=== PATIENT | male | born 1990 | race African-American/Black ===

== ENCOUNTER 2017-12-12 20:29 | Emergency (ER) | payer SELFPAY ==
--- NOTE | 2017-12-12 20:34 | ER Document Report ---
HPI - HPI Patient complains to provider of: right side sore throat Onset: Other - Onset/Duration: Gradual, Persistent Quality of pain: Throbbing Pain Level: 5 Context: 27 yo male with right sided sore throat since wednesday, radiates into right ear. No cough. NO fever. Hurts to swallow. Works at [employer]. Associated Symptoms: Other - see above Exacerbated by: Other - swallowing Relieved by: Denies - ROS ROS below otherwise negative: Yes Systems Reviewed and Negative: Yes All other systems reviewed and negative Past Medical History - General Information source: Patient - Social History Smoking Status: Never Smoker Frequency of alcohol use: None Drug Abuse: None Lives with: Spouse/Significant other Family History: Reviewed & Not Pertinent - Medical History Medical History: Negative Surgical Hx: Negative Vertical Provider Document - CONSTITUTIONAL Agree With Documented VS: Yes Exam Limitations: No Limitations General Appearance: No Apparent Distress - INFECTION CONTROL TRAVEL OUTSIDE OF THE [place] IN LAST 30 DAYS: No - HEENT HEENT: Pharyngeal Erythema. negative: Conjuctival Injection, Tympanic Membrane Red Notes: exudate right tonsil, no abscess - NECK Neck: Supple, Lymphadenopathy-Left - ant, Lymphadenopathy-Right - ant - RESPIRATORY Respiratory: Breath Sounds Normal, No Respiratory Distress - CARDIOVASCULAR Cardiovascular: Regular Rate, Regular Rhythm - GI/ABDOMEN Gastrointestinal: Abdomen Soft, Abdomen Non-Tender, No Organomegaly - MUSCULOSKELETAL/EXTREMETIES Musculoskeletal/Extremeties: MAEW - NEURO Level of Consciousness: Awake, Alert - DERM Integumentary: No Rash Discharge - Discharge Clinical Impression: Tonsillitis Condition: Good Disposition: HOME, SELF-CARE Instructions: Azithromycin ([facility]), Corticosteroid Medication ([facility]), Family Physicians / Practices, Sore Throat ([facility]), Tonsillitis ([facility]) Additional Instructions: plenty of fluids rest azithromycin for antibiotic motrin for pain tylenol prednisone for 3 days to ER if worse if not well in 1 week, get tested for mononucleosis Prescriptions: Ibuprofen [Motrin 600 mg Tablet] 600 mg PO Q8HP PRN #30 tablet PRN Reason: Azithromycin [Zithromax] 250 mg PO DAILY #6 tablet Prednisone [Deltasone 10 mg Tablet] 10 mg PO ASDIR PRN #14 tablet PRN Reason: Forms: Return to Work
[2017-12-12 20:35] VITALS: BP 150/95
== END 2017-12-12 20:46 | disposition home or self-care (01) ==
LOC: ER 20:29
DX: J03.90 Acute tonsillitis, unspecified (principal)
CPT/HCPCS: 99282

== ENCOUNTER 2017-12-14 04:57 | Inpatient (IN) | payer SELFPAY ==
[2017-12-14] MEDS ORDERED: ONDANSETRON HCL INJ/PF 4 MG/2 ML SDV IV ONE (05:48)
[2017-12-14] MEDS ORDERED: NORMAL SALINE 1000 ML 1,000 ML IV ONE ×3 (05:48→10:11)
[2017-12-14] MEDS ORDERED: ONDANSETRON HCL INJ/PF 4 MG/2 ML SDV ONE ×2 (05:52→19:36)
[2017-12-14 06:09] LABS: HEMATOCRIT 36.4 % (37.9-51.0); HEMOGLOBIN 12.3 g/dL (13.5-17.0); MEAN CORPUSCULAR HEMOGLOBIN 29.4 pg (27.0-33.4); MEAN CORPUSCULAR HGB CONC 33.7 g/dL (32.0-36.0); MEAN CORPUSCULAR VOLUME 87 fl (80-97); PLATELET COUNT 249 10^3/uL (150-450); RED BLOOD COUNT 4.17 10^6/uL (4.35-5.55); RED CELL DISTRIBUTION WIDTH 13.7 % (11.5-14.0); WHITE BLOOD COUNT 11.5 10^3/uL (4.0-10.5)
[2017-12-14 06:18] LABS: ALANINE AMINOTRANSFERASE 28 U/L (21-72); ALBUMIN 3.8 g/dL (3.5-5.0); ALKALINE PHOSPHATASE 107 U/L (38-126); ANION GAP 18 (5-19); ASPARTATE AMINO TRANSFERASE 18 U/L (17-59); BILIRUBIN,DIRECT 0.4 mg/dL (0.0-0.4); BILIRUBIN,TOTAL 0.6 mg/dL (0.2-1.3); BLOOD UREA NITROGEN 34 mg/dL (7-20); CALCIUM 9.7 mg/dL (8.4-10.2); CARBON DIOXIDE 21 mmol/L (22-30); CHLORIDE 107 mmol/L (98-107); GLUCOSE 242 mg/dL (75-110); LIPASE 20.1 U/L (23-300); POTASSIUM 4.1 mmol/L (3.6-5.0); SODIUM 146.2 mmol/L (137-145); TOTAL PROTEIN 7.6 g/dL (6.3-8.2)
[2017-12-14 06:30] LABS: ABSOLUTE LYMPHOCYTES# (MANUAL) 0.5 10^3/uL (0.5-4.7); ABSOLUTE MONOCYTES # (MANUAL) 1.8 10^3/uL (0.1-1.4); ABSOLUTE NEUTROPHILS# (MANUAL) 9.2 10^3/uL (1.7-8.2); BAND NEUTROPHILS % (MANUAL) 5 % (3-5); BASOPHILS % (MANUAL) 0 % (0-2); EOSINOPHILS % (MANUAL) 0 % (0-6); LYMPHOCYTES % (MANUAL) 4 % (13-45); METAMYELOCYTES % (MANUAL) 2 % (0); MONOCYTES % (MANUAL) 16 % (3-13); SEGMENTED NEUTROPHILS % (MAN) 73 % (42-78); TOTAL CELLS COUNTED 100
[2017-12-14 06:31] LABS: PLATELET COMMENT ADEQUATE; RBC MORPHOLOGY COMMENT NORMO-CYTIC/CHROMIC
[2017-12-14] MEDS ORDERED: KETOROLAC TROMETHAMINE INJ/PF 30 MG/1 ML SDV IV ONE (07:05)
[2017-12-14] MEDS ORDERED: KETOROLAC TROMETHAMINE INJ/PF 30 MG/1 ML SDV ONE (07:08)
--- NOTE | 2017-12-14 07:09 | ER Document Report ---
ED General - General Chief Complaint: Sore Throat Stated Complaint: VOMITING Time Seen by Provider: 12/14/17 06:29 TRAVEL OUTSIDE OF THE [place] IN LAST 30 DAYS: No - HPI Notes: 27-year-old male who presents with throat pain. Patient was seen several days ago treated for presumptive strep throat, states he has had increasingly severe pain, now has marked increase in difficulty swallowing and states it hurts to move his neck. Describes pain deep in the back of his throat. Burning, aching sharp at times. Subjective fever. Nonradiating except as described. No other modifying factors, no other associated symptoms, no other provocative or palliative factors. - Related Data Allergies/Adverse Reactions: Penicillins Allergy (Verified 12/12/17 20:32) Past Medical History - Social History Smoking Status: Unknown if Ever Smoked Chew tobacco use (# tins/day): No Frequency of alcohol use: None Drug Abuse: None Family History: Reviewed & Not Pertinent Patient has suicidal ideation: No Patient has homicidal ideation: No - Medical History Medical History: Other - Recent strep Endocrine Medical History: Reports: Hx Diabetes Mellitus Type 1 Renal/ Medical History: Denies: Hx Peritoneal Dialysis Review of Systems - Review of Systems Notes: Review of systems as in the history of present illness, otherwise negative. Physical Exam - Vital signs Vitals: Temp Pulse Resp BP Pulse Ox 98.4 F 105 H 20 118/82 98 12/14/17 05:08 12/14/17 05:08 12/14/17 05:08 12/14/17 05:08 12/14/17 05:08 - Notes Notes: General: Well developed . HEENT: Normocephalic, atraumatic. Pupils equal round reactive to light. No JVD. Moderate pharyngeal injection, no purulence. No uvular edema. Chest: No trauma. Respiratory: Good air exchange, normal excursion. Cardiac: Regular rhythm. No murmurs or gallops. Abdomen: Soft, benign. Nondistended. Nontender. Back: No asymmetry or gross abnormality. Motor: Grossly normal power and tone. Neurologic: Alert, nonfocal. Cranial nerves II-12 are intact. Sensation intact. Vascular: Well perfused. Normal peripheral pulses. Skin: No petechiae or purpura. Course - Re-evaluation Re-evalutation: 12/14/17 07:08 27-year-old male with persistent pharyngitis. May be viral pharyngitis, persistent strep symptoms, however, is concerned with potential retropharyngeal abscess or deep space abscess. Plan to proceed with laboratory evaluation, CT, treat pain, reassess. Labs reviewed, no significant leukocytosis, normal lactate. Chemistries show mild hyperglycemia. Patient did undergo CT imaging, this shows what appears to be a retropharyngeal phlegmon versus early abscess. Case is discussed with the on-call ENT doctor who is requested hospitalist admission and will evaluate him in the ED. Patient received volume hydration/resuscitation, is kept n.p.o., I have given him IV clindamycin and IV Decadron. Blood cultures were obtained and pending. Patient has had serial airway evaluations. He is maintaining his airway, not drooling, has no significant increased work of breathing. He will be admitted to the ICU under the care of the hospitalist service. - Vital Signs Vital signs: Temp Pulse Resp BP Pulse Ox 98.6 F 105 H 19 128/93 H 96 12/14/17 09:50 12/14/17 09:50 12/14/17 11:30 12/14/17 11:30 12/14/17 11:30 - Laboratory Result Diagrams: 12/14/17 05:40 12/14/17 05:40 Laboratory results interpreted by me: 12/14/17 12/14/17 12/14/17 05:40 05:40 08:40 WBC 11.5 H RBC 4.17 L Hgb 12.3 L Hct 36.4 L Lymphocytes % (Manual) 4 L Monocytes % (Manual) 16 H Metamyelocytes % 2 H Abs Neuts (Manual) 9.2 H Abs Monocytes (Manual) 1.8 H Sodium 146.2 H Carbon Dioxide 21 L BUN 34 H Creatinine 1.51 H Est GFR (Non-Af Amer) 55 L Glucose 242 H Lipase 20.1 L Urine Protein 100 H Urine Glucose (UA) >=500 H Urine Ketones TRACE H Urine Blood MODERATE H Critical Care Note - Critical Care Note Total time excluding time spent on procedures (mins): 35 Comments: Includes serial airway evaluations, discussion case with consultants and admitting physicians. This does not include time spent on procedures Discharge - Discharge Clinical Impression: Retropharyngeal abscess Condition: Critical Disposition: ADMITTED INPATIENT Admitting Provider: Hospitalist Unit Admitted: ICU
[2017-12-14] MEDS ORDERED: QUETIAPINE FUMARATE 25 MG TABLET PO ONE (07:17)
[2017-12-14] MEDS ORDERED: HYDROMORPHONE HCL INJ/PF 2 MG/ML AMPULE IV ONE (08:30)
[2017-12-14 08:55] LABS: APPEARANCE,URINE CLEAR; BILIRUBIN,URINE NEGATIVE (NEGATIVE); COLOR,URINE YELLOW; GLUCOSE, URINE >=500 mg/dL (NEGATIVE); KETONES,URINE TRACE mg/dL (NEGATIVE); LEUKOCYTE ESTERASE,URINE NEGATIVE (NEGATIVE); NITRITE,URINE NEGATIVE (NEGATIVE); PROTEIN,URINE 100 mg/dL (NEGATIVE); URINE SPECIFIC GRAVITY 1.022; UROBILINOGEN,URINE NEGATIVE mg/dL (<2.0)
--- NOTE | 2017-12-14 08:57 | RADIOLOGY REPORT (SQ) ---
EXAM DESCRIPTION: CT SOFT TISSUE NECK WITH COMPLETED DATE/TIME: 12/14/2017 8:26 am REASON FOR STUDY: Sore throat, tonsilitis; Eval for retropharyngeal abscess COMPARISON: None. TECHNIQUE: Post IV contrasted scanning from skull base through lung apices with review of bone, soft tissue and lung windows. Reconstructed coronal and sagittal MPR images reviewed. All images stored on PACS. All CT scanners at this facility use dose modulation, iterative reconstruction, and/or weight based d osing when appropriate to reduce radiation dose to as low as reasonably achievable (ALARA). [facility]: Dose Right [facility]: CareDose [facility]: Dose Right [facility]: Teradose 4D [facility]: AXON [employer] CONTRAST TYPE AND DOSE: contrast/concentration: Isovue 300.00 mg/ml; Total Contrast Delivered: 75.0 ml; Total Saline Delivered: 46.7 ml RENAL FUNCTION: None required. The patient is less than 50 years old. RADIATION DOSE: CT Rad equipment meets quality standard of care and radiation dose reduction techniq ues were employed. CTDIvol: 13.2 mGy. DLP: 393 mGy-cm. . LIMITATIONS: None. FINDINGS: SKULL BASE: Intact. MAJOR SALIVARY GLANDS: No solid or cystic masses. No inflammatory changes. LYMPHADENOPATHY: There are enlarged proximal cervical lymph nodes on the right. MUCOSAL MASSES OR ASYMMETRY: There is diffuse prominence of the tonsillar tissues with impingement on the pharyngeal air column. There is inferior extension into the retropharyngeal soft tissues which is slightly more pronounced to the right of midline as compared to the left. There is heterogeneous density in the retropharyngeal soft tissues to the right of midline suspicious for a retropharyngeal abscess. LARYNX/CORDS: No abnormal findings. VASCULAR STRUCTURES: The major vessels are patent. LUNG APICES: Clear. BONES: Intact. THYROID: Normal size. No masses. PARANASAL SINUSES: Clear. OTHER: No other significant finding. IMPRESSION: Diffuse prominence of the tonsillar tissues with inferior extension into the retropharyn geal soft tissues as noted above. The appearance is consistent with an infectious process. There is heterogeneous density in the retropharyngeal soft tissues to the right of midline suspicious for a r etropharyngeal abscess. Clinical correlation is recommended. There are enlarged proximal cervical l ymph nodes on the right. Other findings as noted above. TECHNICAL DOCUMENTATION: JOB ID: [id number] Quality ID # [id number]: Final reports with documentation of one or more dose reduction techniques (e.g., Au tomated exposure control, adjustment of the mA and/or kV according to patient size, use of iterative reconstruction technique) 2010 [employer]- All Rights Reserved Reading location - IP/workstation name: [email or web address]
[2017-12-14] MEDS ORDERED: CLINDAMYCIN 900 MG/D5W RTU 50 ML IV ONE (10:01)
[2017-12-14] MEDS ORDERED: DEXAMETHASONE SOD PHOS INJ 10 MG/1 ML VIAL IV ONE (10:01)
[2017-12-14] MEDS ORDERED: IPRATROPIUM/ALBUTEROL 0.5-2.5 MG/3 ML AMPUL NEB PRN (11:29)
[2017-12-14] MEDS ORDERED: ACETAMINOPHEN 325 MG TABLET PO PRN (11:29)
[2017-12-14] MEDS ORDERED: GLUCAGON,HUMAN RECOMB 1 MG INJ SUBCUT PRN (11:29)
[2017-12-14] MEDS ORDERED: DEXTROSE 50%-WATER 25 GM/50 ML DISP.SYRIN IV PRN ×4 (11:29)
[2017-12-14] MEDS ORDERED: GLUCAGON,HUMAN RECOMB 1 MG INJ IM PRN (11:29)
[2017-12-14] MEDS ORDERED: DEXTROSE 40% GEL 15 GM TUBE PO PRN ×4 (11:29)
--- NOTE | 2017-12-14 11:55 | PDOC H&P ---
History of Present Illness Admission Date/PCP: 12/14/17 10:42 History of Present Illness: JONATHAN BARRERA is a 27 year old male This young gentleman presents emergency room with complaints of sore throat. He was actually seen in the ED on December 12 and started on Zithromax as he is allergic to penicillin. Returns today with worsening pain and difficulty swallowing as well as difficulty breathing. He also describes pain on moving his neck. There is no nausea vomiting noisy breathing. CT scan of the neck was done which apparently revealed a possible retropharyngeal abscess. ED physician discussed with ENT and at this point it appears that it could also be a phlegmon versus an abscess and ENT wound becoming to evaluate this patient for further management. Meanwhile he has been started on dexamethasone as well as Clindamycin IV. Past Medical History Endocrine Medical History: Reports: Diabetes Mellitus Type 1 Social History Information Source: Patient Smoking Status: Unknown if Ever Smoked Frequency of Alcohol Use: Rare Hx Prescription Drug Abuse: No Family History Family History: Reviewed & Not Pertinent Parental Family History Reviewed: Yes Children Family History Reviewed: NA Sibling(s) Family History Reviewed.: Unknown Medication/Allergy Home Medications: Azithromycin [Zithromax 250 mg Tablet] 250 mg PO DAILY 12/14/17 Ibuprofen [Motrin 600 mg Tablet] 600 mg PO Q8HP PRN 12/14/17 Insulin Aspart [Novolog Insulin (Aspart) 100 unit/mL] 0 units SQ .PERSLIDINGSCALE 12/14/17 Insulin Glargine,Hum.rec.anlog [Lantus Solostar] 20 units SQ QHS 12/14/17 Allergies/Adverse Reactions: Penicillins Allergy (Verified 12/12/17 20:32) Review of Systems ROS unobtainable: Other - Very limited due to clinical condition Constitutional: PRESENT: fever(s) Nose, Mouth, and Throat: PRESENT: sore throat Cardiovascular: ABSENT: chest pain, dyspnea on exertion, edema, orthropnea, palpitations Gastrointestinal: ABSENT: abdominal pain, constipation, diarrhea, hematemesis, hematochezia, nausea, vomiting Physical Exam Vital Signs: Temp Pulse Resp BP Pulse Ox 98.6 F 105 H 19 128/93 H 96 12/14/17 09:50 12/14/17 09:50 12/14/17 11:30 12/14/17 11:30 12/14/17 11:30 General appearance: PRESENT: no acute distress, thin Head exam: PRESENT: atraumatic Ear exam: PRESENT: other - Right sided facial swelling Mouth exam: PRESENT: other - unable to fully open mouth R pharyngeal swelling Throat exam: ABSENT: tonsillar exudate Neck exam: PRESENT: lymphadenopathy. ABSENT: carotid bruit, JVD, thyromegaly Respiratory exam: PRESENT: clear to auscultation morena. ABSENT: rales, rhonchi, wheezes Cardiovascular exam: PRESENT: +S1, +S2, tachycardia GI/Abdominal exam: PRESENT: normal bowel sounds, soft. ABSENT: distended, guarding, mass, organolmegaly, rebound, tenderness Rectal exam: PRESENT: deferred Musculoskeletal exam: PRESENT: ambulatory Results Laboratory Results: Laboratory 12/14/17 12/14/17 12/14/17 05:40 05:40 05:50 WBC 11.5 H RBC 4.17 L Hgb 12.3 L Hct 36.4 L MCV 87 MCH 29.4 MCHC 33.7 RDW 13.7 Plt Count 249 Total Counted 100 Seg Neutrophils % Not Reportable Seg Neuts % (Manual) 73 Band Neutrophils % 5 Lymphocytes % Not Reportable Lymphocytes % (Manual) 4 L Monocytes % Not Reportable Monocytes % (Manual) 16 H Eosinophils % Not Reportable Eosinophils % (Manual) 0 Basophils % Not Reportable Basophils % (Manual) 0 Metamyelocytes % 2 H Absolute Neutrophils Not Reportable Abs Neuts (Manual) 9.2 H Absolute Lymphocytes Not Reportable Abs Lymphs (Manual) 0.5 Absolute Monocytes Not Reportable Abs Monocytes (Manual) 1.8 H Absolute Eosinophils Not Reportable Absolute Eos (Manual) 0.0 Absolute Basophils Not Reportable Abs Basophils (Manual) 0.0 Platelet Comment ADEQUATE RBC Morph Comment NORMO-CYTIC/CHROMIC Sodium 146.2 H Potassium 4.1 Chloride 107 Carbon Dioxide 21 L Anion Gap 18 BUN 34 H Creatinine 1.51 H Est GFR ( Amer) > 60 Est GFR (Non-Af Amer) 55 L Glucose 242 H Lactic Acid Calcium 9.7 Total Bilirubin 0.6 Direct Bilirubin 0.4 Neonat Total Bilirubin Not Reportable Neonat Direct Bilirubin Not Reportable Neonat Indirect Bili Not Reportable AST 18 ALT 28 Alkaline Phosphatase 107 Total Protein 7.6 Albumin 3.8 Lipase 20.1 L Urine Color Urine Appearance Urine pH Ur Specific [place] Urine Protein Urine Glucose (UA) Urine Ketones Urine Blood Urine Nitrite Urine Bilirubin Urine Urobilinogen Ur Leukocyte Esterase Urine WBC (Auto) Urine RBC (Auto) U Hyaline Cast (Auto) Urine Bacteria (Auto) Urine Mucus (Auto) Urine Ascorbic Acid Group A Strep Rapid NEGATIVE 12/14/17 12/14/17 08:40 10:40 WBC RBC Hgb Hct MCV MCH MCHC RDW Plt Count Total Counted Seg Neutrophils % Seg Neuts % (Manual) Band Neutrophils % Lymphocytes % Lymphocytes % (Manual) Monocytes % Monocytes % (Manual) Eosinophils % Eosinophils % (Manual) Basophils % Basophils % (Manual) Metamyelocytes % Absolute Neutrophils Abs Neuts (Manual) Absolute Lymphocytes Abs Lymphs (Manual) Absolute Monocytes Abs Monocytes (Manual) Absolute Eosinophils Absolute Eos (Manual) Absolute Basophils Abs Basophils (Manual) Platelet Comment RBC Morph Comment Sodium Potassium Chloride Carbon Dioxide Anion Gap BUN Creatinine Est GFR ( Amer) Est GFR (Non-Af Amer) Glucose Lactic Acid 1.2 Calcium Total Bilirubin Direct Bilirubin Neonat Total Bilirubin Neonat Direct Bilirubin Neonat Indirect Bili AST ALT Alkaline Phosphatase Total Protein Albumin Lipase Urine Color YELLOW Urine Appearance CLEAR Urine pH 5.0 Ur Specific [place] 1.022 Urine Protein 100 H Urine Glucose (UA) >=500 H Urine Ketones TRACE H Urine Blood MODERATE H Urine Nitrite NEGATIVE Urine Bilirubin NEGATIVE Urine Urobilinogen NEGATIVE Ur Leukocyte Esterase NEGATIVE Urine WBC (Auto) 5 Urine RBC (Auto) 1 U Hyaline Cast (Auto) 2 Urine Bacteria (Auto) TRACE Urine Mucus (Auto) RARE Urine Ascorbic Acid NEGATIVE Group A Strep Rapid Impressions: Soft Tissue Neck CT 12/14/17 07:02 IMPRESSION: Diffuse prominence of the tonsillar tissues with inferior extension into the retropharyngeal soft tissues as noted above. The appearance is consistent with an infectious process. There is heterogeneous density in the retropharyngeal soft tissues to the right of midline suspicious for a retropharyngeal abscess. Clinical correlation is recommended. There are enlarged proximal cervical lymph nodes on the right. Other findings as noted above. Assessment & Plan - Diagnosis (1) Retropharyngeal abscess Is this a current diagnosis for this admission?: Yes (2) Tonsillitis Is this a current diagnosis for this admission?: Yes (3) Diabetes 1.5, managed as type 1 Is this a current diagnosis for this admission?: Yes - Time Time Spent: 30 to 50 Minutes Medications reviewed and adjusted accordingly: Yes Anticipated discharge: Home Within: within 72 hours - Inpatient Certification Based on my medical assessment, after consideration of the patient's comorbidities, presenting symptoms, or acuity I expect that the services needed warrant INPATIENT care.: Yes Medical Necessity: Need for IV Antibiotics
[2017-12-14] MEDS: CLINDAMYCIN 900 MG/D5W RTU 50 ML IV SCH ×2 (13:08→21:35)
[2017-12-14] MEDS: HYDROMORPHONE HCL INJ/PF 2 MG/ML AMPULE IV PRN ×2 (13:09→19:13)
[2017-12-14] MEDS: DEXAMETHASONE SOD PHOSPHATE INJ 4 MG/1 ML VIAL IV SCH ×2 (13:10→21:34)
[2017-12-14] MEDS: RINGERS SOLUTION,LACTATED 1,000 ML IV PRN ×2 (13:11→21:35)
[2017-12-14] MEDS ORDERED: INSULIN GLARGINE,HUM.REC.ANLOG 1,000 UNIT/10 ML UNIT SUBCUT ONE (13:23)
[2017-12-14] MEDS ORDERED: INSULIN REG, HUMAN 100 UNIT/ML 3 ML VIAL SUBCUT ONE (13:45)
[2017-12-14] MEDS ORDERED: INSULIN LISPRO 100 UNIT/ML 3 ML VIAL SUBCUT ONE (14:15)
[2017-12-14] MEDS: INSULIN REG, HUMAN 100 UNIT/ML 3 ML VIAL (PYX) SUBCUT PRN (17:02)
[2017-12-14] MEDS: INSULIN LISPRO 100 UNIT/ML 3 ML VIAL SUBCUT SCH ×2 (17:02→23:30)
[2017-12-14] MEDS ORDERED: ONDANSETRON HCL INJ/PF 4 MG/2 ML SDV IV PRN (19:51)
[2017-12-14] MEDS: FAMOTIDINE INJ/PF 20 MG/2 ML SDV IV SCH (21:35)
--- NOTE | 2017-12-14 21:49 | RADIOLOGY REPORT (SQ) ---
EXAM DESCRIPTION: CHEST SINGLE VIEW COMPLETED DATE/TIME: 12/14/2017 9:38 pm REASON FOR STUDY: Chest tightness COMPARISON: None. EXAM PARAMETERS: NUMBER OF VIEWS: One view. TECHNIQUE: Single frontal radiographic view of the chest acquired. RADIATION DOSE: NA LIMITATIONS: None. FINDINGS: LUNGS AND PLEURA: No opacities, masses or pneumothorax. No pleural effusion. MEDIASTINUM AND HILAR STRUCTURES: No masses. Contour normal. HEART AND VASCULAR STRUCTURES: Heart normal in size. Normal vasculature. BONES: No acute findings. HARDWARE: None in the chest. OTHER: No other significant finding. IMPRESSION: NO ACUTE RADIOGRAPHIC FINDING IN THE CHEST. TECHNICAL DOCUMENTATION: JOB ID: [id number] [email or web address]- All Rights Reserved Reading location - IP/workstation name: [email or web address]
--- NOTE | 2017-12-14 21:49 | RADIOLOGY REPORT (SQ) ---
EXAM DESCRIPTION: KUB/ABDOMEN (SINGLE VIEW) COMPLETED DATE/TIME: 12/14/2017 9:38 pm REASON FOR STUDY: pain COMPARISON: None. NUMBER OF VIEWS: One view. TECHNIQUE: Supine radiographic image of the abdomen acquired. LIMITATIONS: None. FINDINGS: BOWEL GAS PATTERN: Normal bowel gas pattern. No dilated loops. CALCIFICATIONS: No suspicious calcifications. SOFT TISSUES: The urinary bladder is significantly distended. A pelvic mass cannot be excluded. HARDWARE: None in the abdomen. BONES: No acute fracture. No worrisome bone lesions. OTHER: No other significant finding. IMPRESSION: Distended urinary bladder. Cannot exclude a pelvic mass. TECHNICAL DOCUMENTATION: JOB ID: [id number] [employer]- All Rights Reserved Reading location - IP/workstation name: [email or web address]
[2017-12-14] MEDS ORDERED: INSULIN GLARGINE,HUM.REC.ANLOG 300 UNIT/3 ML INSULN.PEN SUBCUT SCH (22:00)
[2017-12-14] MEDS ORDERED: KETOROLAC TROMETHAMINE INJ/PF 30 MG/1 ML SDV INJ ONE (23:30)
[2017-12-15] MEDS: HYDROMORPHONE HCL INJ/PF 2 MG/ML AMPULE IV PRN ×7 (00:08→23:28)
[2017-12-15 00:28] LABS: ANION GAP 12 (5-19); BLOOD UREA NITROGEN 25 mg/dL (7-20); CALCIUM 9.1 mg/dL (8.4-10.2); CARBON DIOXIDE 22 mmol/L (22-30); CHLORIDE 111 mmol/L (98-107); GLUCOSE 247 mg/dL (75-110); POTASSIUM 4.2 mmol/L (3.6-5.0)
[2017-12-15] MEDS: PROMETHAZINE HCL INJ 25 MG/1 ML VIAL IV PRN ×2 (04:04→15:50)
[2017-12-15] MEDS: INSULIN REG, HUMAN 100 UNIT/ML 3 ML VIAL (PYX) SUBCUT PRN ×3 (04:04→12:57)
[2017-12-15] MEDS: CLINDAMYCIN 900 MG/D5W RTU 50 ML IV SCH ×3 (05:34→22:34)
[2017-12-15] MEDS: DEXAMETHASONE SOD PHOSPHATE INJ 4 MG/1 ML VIAL IV SCH ×3 (05:35→22:35)
[2017-12-15] MEDS: INSULIN LISPRO 100 UNIT/ML 3 ML VIAL SUBCUT SCH ×3 (05:36→18:42)
[2017-12-15 06:28] LABS: HEMATOCRIT 33.5 % (37.9-51.0); HEMOGLOBIN 11.3 g/dL (13.5-17.0); MEAN CORPUSCULAR HEMOGLOBIN 29.6 pg (27.0-33.4); MEAN CORPUSCULAR HGB CONC 33.5 g/dL (32.0-36.0); MEAN CORPUSCULAR VOLUME 88 fl (80-97); PLATELET COUNT 250 10^3/uL (150-450); RED BLOOD COUNT 3.81 10^6/uL (4.35-5.55); RED CELL DISTRIBUTION WIDTH 13.6 % (11.5-14.0); WHITE BLOOD COUNT 16.6 10^3/uL (4.0-10.5)
[2017-12-15 06:45] LABS: ANION GAP 17 (5-19); BLOOD UREA NITROGEN 27 mg/dL (7-20); CALCIUM 9.2 mg/dL (8.4-10.2); CARBON DIOXIDE 21 mmol/L (22-30); CHLORIDE 110 mmol/L (98-107); GLUCOSE 385 mg/dL (75-110); POTASSIUM 4.4 mmol/L (3.6-5.0); SODIUM 147.9 mmol/L (137-145)
[2017-12-15 07:26] LABS: ABSOLUTE LYMPHOCYTES# (MANUAL) 0.2 10^3/uL (0.5-4.7); ABSOLUTE MONOCYTES # (MANUAL) 0.5 10^3/uL (0.1-1.4); ABSOLUTE NEUTROPHILS# (MANUAL) 15.9 10^3/uL (1.7-8.2); BAND NEUTROPHILS % (MANUAL) 10 % (3-5); BASOPHILS % (MANUAL) 0 % (0-2); EOSINOPHILS % (MANUAL) 0 % (0-6); LYMPHOCYTES % (MANUAL) 1 % (13-45); MONOCYTES % (MANUAL) 3 % (3-13); PLATELET COMMENT ADEQUATE; RBC MORPHOLOGY COMMENT NORMO-CYTIC/CHROMIC; SEGMENTED NEUTROPHILS % (MAN) 86 % (42-78); TOTAL CELLS COUNTED 100
[2017-12-15] MEDS: RINGERS SOLUTION,LACTATED 1,000 ML IV PRN (09:07)
[2017-12-15] MEDS: FAMOTIDINE INJ/PF 20 MG/2 ML SDV IV SCH ×2 (09:10→22:35)
--- NOTE | 2017-12-15 09:38 | PDOC PROGRESS REPORT ---
Subjective Progress Note for:: 12/15/17 Subjective:: Pt. remains in the ICU on an airway watch with right PPS/Deep neck acute inflammatory process with phlegmon and no localizing abscess. He is slowly improving with less then 24 hours of IV Clinda and Decadron. Reason For Visit: RETROPHARYNGEAL ABSCESS,DIABETES MELLITUS Physical Exam Vital Signs: Temp Pulse Resp BP Pulse Ox 98.5 F 99 15 131/91 H 98 12/15/17 07:45 12/15/17 07:45 12/15/17 07:45 12/15/17 07:45 12/15/17 07:45 Intake & Output 12/14/17 12/15/17 12/16/17 06:59 06:59 06:59 Intake Total 1895 Output Total 1525 Balance 370 Weight 64.6 kg General appearance: PRESENT: no acute distress, other - Pt. is sitting up in bed and talking without difficulty, no SOB, and no stridor noted. Head exam: PRESENT: atraumatic, normocephalic Neurological exam: PRESENT: alert, oriented to time, oriented to situation Results Laboratory Results: 12/15/17 06:15 12/15/17 06:15 12/15/17 12/15/17 12/15/17 00:14 06:15 06:15 WBC 16.6 H RBC 3.81 L Hgb 11.3 L Hct 33.5 L MCV 88 MCH 29.6 MCHC 33.5 RDW 13.6 Plt Count 250 Seg Neutrophils % Not Reportable Lymphocytes % Not Reportable Monocytes % Not Reportable Eosinophils % Not Reportable Basophils % Not Reportable Absolute Neutrophils Not Reportable Absolute Lymphocytes Not Reportable Absolute Monocytes Not Reportable Absolute Eosinophils Not Reportable Absolute Basophils Not Reportable Sodium 145.0 147.9 H Potassium 4.2 4.4 Chloride 111 H 110 H Carbon Dioxide 22 21 L Anion Gap 12 17 BUN 25 H 27 H Creatinine 1.19 1.18 Est GFR ( Amer) > 60 > 60 Est GFR (Non-Af Amer) > 60 > 60 Glucose 247 H 385 H Calcium 9.1 9.2 Impressions: Chest X-Ray 12/14/17 00:00 IMPRESSION: NO ACUTE RADIOGRAPHIC FINDING IN THE CHEST. KUB X-Ray 12/14/17 00:00 IMPRESSION: Distended urinary bladder. Cannot exclude a pelvic mass. Soft Tissue Neck CT 12/14/17 07:02 IMPRESSION: Diffuse prominence of the tonsillar tissues with inferior extension into the retropharyngeal soft tissues as noted above. The appearance is consistent with an infectious process. There is heterogeneous density in the retropharyngeal soft tissues to the right of midline suspicious for a retropharyngeal abscess. Clinical correlation is recommended. There are enlarged proximal cervical lymph nodes on the right. Other findings as noted above. Assessment & Plan - Diagnosis (1) Neck infection Is this a current diagnosis for this admission?: Yes - Time Time Spent with patient: Less than 15 minutes Anticipated discharge: Home Within: within 48 hours - Plan Summary Plan Summary: Rec. and plan as d/w hospitalist staff and ICU nurse is for cont'd. IV abxs and IV Decadron with plan to add Flagyl today as well and repeat NPL exam later today.
[2017-12-15] MEDS: CEFTRIAXONE 2 GM/D5W RTU 2 GM/50 ML RTUPB IV SCH (09:45)
--- NOTE | 2017-12-15 10:39 | PDOC PROGRESS REPORT ---
Subjective Progress Note for:: 12/15/17 Subjective:: The patient is a 27-year-old -Malag[place] male who was admitted to the hospital with a retropharyngeal abscess. Currently he is in the ICU. He is being followed closely by ENT. Currently on IV clindamycin and IV dexamethasone. The patient's airway has not been compromised. Today when I saw the patient he is sitting up in bed. He states he is still having a significant amount of pain when he swallows and it is quite severe. He states he still has quite a bit of swelling in his throat and that he breathes better when he has oxygen on. ENT was present at the room at the time of my visit. They feel as if he is stable and plan to reimage him in the near future if he does not make steady progress going forward. He denies fever chills. No chest pain. He does have pain and feels as if he has a nodule around the right nipple. He also has some epigastric abdominal pain. He has had no nausea or vomiting. He has not had a bowel movement yet today. He has no dysuria, frequency or hematuria. Reason For Visit: RETROPHARYNGEAL ABSCESS,DIABETES MELLITUS Physical Exam Vital Signs: Temp Pulse Resp BP Pulse Ox 98.5 F 99 15 131/91 H 98 12/15/17 07:45 12/15/17 07:45 12/15/17 07:45 12/15/17 07:45 12/15/17 07:45 Intake & Output 12/14/17 12/15/17 12/16/17 06:59 06:59 06:59 Intake Total 1895 Output Total 1525 Balance 370 Weight 64.6 kg General appearance: PRESENT: no acute distress, thin, well-nourished Head exam: PRESENT: atraumatic, normocephalic Eye exam: PRESENT: conjunctiva pink, EOMI, PERRLA. ABSENT: scleral icterus Ear exam: PRESENT: normal external ear exam Mouth exam: PRESENT: moist Throat exam: PRESENT: post pharyngeal erythema Neck exam: PRESENT: tenderness, other - Neck is quite swollen and quite tender to palpation. Respiratory exam: PRESENT: clear to auscultation morena, other - Right nipple does feel like it may have a small nodule under it.. ABSENT: rales, rhonchi, wheezes Pulses: PRESENT: normal dorsalis pedis pul Vascular exam: PRESENT: normal capillary refill GI/Abdominal exam: PRESENT: normal bowel sounds, soft, tenderness - He is tender to palpation in the epigastric area. No rebound guarding or rigidity. ABSENT: distended, guarding, mass, organolmegaly, rebound Rectal exam: PRESENT: deferred Extremities exam: PRESENT: full ROM. ABSENT: calf tenderness, clubbing, pedal edema Neurological exam: PRESENT: alert, awake, oriented to person, oriented to place , oriented to time, oriented to situation, CN II-XII grossly intact. ABSENT: motor sensory deficit Psychiatric exam: PRESENT: appropriate affect, normal mood. ABSENT: homicidal ideation, suicidal ideation Skin exam: PRESENT: dry, intact, warm. ABSENT: cyanosis, rash Results Laboratory Results: 12/15/17 06:15 12/15/17 06:15 12/15/17 12/15/17 12/15/17 00:14 06:15 06:15 WBC 16.6 H RBC 3.81 L Hgb 11.3 L Hct 33.5 L MCV 88 MCH 29.6 MCHC 33.5 RDW 13.6 Plt Count 250 Seg Neutrophils % Not Reportable Lymphocytes % Not Reportable Monocytes % Not Reportable Eosinophils % Not Reportable Basophils % Not Reportable Absolute Neutrophils Not Reportable Absolute Lymphocytes Not Reportable Absolute Monocytes Not Reportable Absolute Eosinophils Not Reportable Absolute Basophils Not Reportable Sodium 145.0 147.9 H Potassium 4.2 4.4 Chloride 111 H 110 H Carbon Dioxide 22 21 L Anion Gap 12 17 BUN 25 H 27 H Creatinine 1.19 1.18 Est GFR ( Amer) > 60 > 60 Est GFR (Non-Af Amer) > 60 > 60 Glucose 247 H 385 H Calcium 9.1 9.2 Phosphorus 12/15/17 06:15 WBC RBC Hgb Hct MCV MCH MCHC RDW Plt Count Seg Neutrophils % Lymphocytes % Monocytes % Eosinophils % Basophils % Absolute Neutrophils Absolute Lymphocytes Absolute Monocytes Absolute Eosinophils Absolute Basophils Sodium Potassium Chloride Carbon Dioxide Anion Gap BUN Creatinine Est GFR ( Amer) Est GFR (Non-Af Amer) Glucose Calcium Phosphorus 4.1 Impressions: Chest X-Ray 12/14/17 00:00 IMPRESSION: NO ACUTE RADIOGRAPHIC FINDING IN THE CHEST. KUB X-Ray 12/14/17 00:00 IMPRESSION: Distended urinary bladder. Cannot exclude a pelvic mass. Soft Tissue Neck CT 12/14/17 07:02 IMPRESSION: Diffuse prominence of the tonsillar tissues with inferior extension into the retropharyngeal soft tissues as noted above. The appearance is consistent with an infectious process. There is heterogeneous density in the retropharyngeal soft tissues to the right of midline suspicious for a retropharyngeal abscess. Clinical correlation is recommended. There are enlarged proximal cervical lymph nodes on the right. Other findings as noted above. Assessment & Plan - Diagnosis (1) Retropharyngeal abscess Is this a current diagnosis for this admission?: Yes Plan: The patient will continue IV clindamycin. This is day #2 of treatment. He also is receiving IV dexamethasone. At the recommendation of infectious disease I have added IV Rocephin to his regimen as well. ENT is following and I certainly appreciate their input (2) Tonsillitis Is this a current diagnosis for this admission?: Yes Plan: Plan as above (3) Diabetes 1.5, managed as type 1 Is this a current diagnosis for this admission?: Yes Plan: The patient has been receiving IV dexamethasone. His blood sugars are markedly uncontrolled. I will increase the patient's Lantus to 30 units nightly. He will continue 10 units of Humalog every 6 hours with sliding scale coverage as well. We may need to make further adjustments. (4) Leukocytosis Is this a current diagnosis for this admission?: Yes Plan: He has worsening leukocytosis likely due to steroids. (5) Anemia Is this a current diagnosis for this admission?: Yes Plan: This is an anemia of chronic disease and is stable. (6) Acute hypernatremia Is this a current diagnosis for this admission?: Yes Plan: I will change his IV fluids to half-normal saline with 20 of K today. (7) Hyperglycemia, drug-induced Is this a current diagnosis for this admission?: Yes Plan: Secondary to steroids. Plan as noted above. - Time Time Spent with patient: 25-34 minutes - Inpatient Certification Based on my medical assessment, after consideration of the patient's comorbidities, presenting symptoms, or acuity I expect that the services needed warrant INPATIENT care.: Yes I certify that my determination is in accordance with my understanding of Medicare's requirements for reasonable and necessary INPATIENT services [42 CFR 412.3e].: Yes Medical Necessity: Need For IV Fluids, Need for IV Antibiotics, Other - The patient remains in the ICU. He has a rather significant retropharyngeal potential abscess. There are concerns that if this worsens his airway could be compromised. Timing of disposition will be determined by his clinical course
[2017-12-15] MEDS: POTASSI CL 20 MEQ/1/2NS 1L 20 MEQ/1,000 ML RTUINJ IV PRN (11:15)
--- NOTE | 2017-12-15 16:37 | Physician Advisory Note ---
Physician Advisor ProgressNote .: Pursuant to the plan for [facility], I have reviewed the medical record for this patient. Physician Advisor Statement: Please consider documenting, if you agree: 1. Likely underlying cause of the ACD. Thanks! CK
[2017-12-15] MEDS ORDERED: LIDOCAINE 4% TOPICAL SOLN 50 ML TP PRN (18:00)
[2017-12-15] MEDS ORDERED: OXYMETAZOLINE HCL 0.05% NASAL SPRAY 15 ML BOTTLE NASL PRN (18:00)
[2017-12-15 22:22] LABS: ANION GAP 11 (5-19); BLOOD UREA NITROGEN 28 mg/dL (7-20); CALCIUM 9.4 mg/dL (8.4-10.2); CARBON DIOXIDE 27 mmol/L (22-30); CHLORIDE 112 mmol/L (98-107); GLUCOSE 117 mg/dL (75-110); POTASSIUM 4.4 mmol/L (3.6-5.0); SODIUM 149.7 mmol/L (137-145)
[2017-12-15] MEDS: INSULIN GLARGINE,HUM.REC.ANLOG 300 UNIT/3 ML INSULN.PEN SUBCUT SCH (22:36)
--- NOTE | 2017-12-15 22:41 | RADIOLOGY REPORT (SQ) ---
EXAM DESCRIPTION: CT SOFT TISSUE NECK WITH COMPLETED DATE/TIME: 12/15/2017 10:24 pm REASON FOR STUDY: neck swelling COMPARISON: None. TECHNIQUE: Post IV contrasted scanning from skull base through lung apices with review of bone, soft tissue and lung windows. Reconstructed coronal and sagittal MPR images reviewed. All images stored on PACS. All CT scanners at this facility use dose modulation, iterative reconstruction, and/or weight based d osing when appropriate to reduce radiation dose to as low as reasonably achievable (ALARA). [facility]: Dose Right [facility]: CareDose [facility]: Dose Right [facility]: Teradose 4D [facility]: [employer] CONTRAST TYPE AND DOSE: contrast/concentration: Isovue 370.00 mg/ml; Total Contrast Delivered: 75.0 ml; Total Saline Delivered: 55.0 ml RENAL FUNCTION: BUN 27 creatinine 1.18 RADIATION DOSE: CT Rad equipment meets quality standard of care and radiation dose reduction techniq ues were employed. CTDIvol: 10.8 mGy. DLP: 361 mGy-cm. . LIMITATIONS: None. FINDINGS: SKULL BASE: Intact. MAJOR SALIVARY GLANDS: No solid or cystic masses. No inflammatory changes. LYMPHADENOPATHY: No adenopathy. MUCOSAL MASSES OR ASYMMETRY: There is asymmetric soft tissues thickening on the right side. There is some low-density in the parapharyngeal space on the right and in the retropharyngeal space. LARYNX/CORDS: No abnormal findings. VASCULAR STRUCTURES: The major vessels are patent. LUNG APICES: Clear. BONES: Intact. THYROID: Normal size. No masses. PARANASAL SINUSES: Clear. OTHER: No other significant finding. IMPRESSION: Right peritonsillar abscess with involvement in the right parapharyngeal space and in th e retropharyngeal space. TECHNICAL DOCUMENTATION: JOB ID: [id number] Quality ID # [id number]: Final reports with documentation of one or more dose reduction techniques (e.g., Au tomated exposure control, adjustment of the mA and/or kV according to patient size, use of iterative reconstruction technique) 2010 [employer]- All Rights Reserved Reading location - IP/workstation name: [email or web address]
--- NOTE | 2017-12-15 22:49 | PDOC PROGRESS REPORT ---
Subjective Progress Note for:: 12/15/17 Subjective:: Pt. feeling more comfortable with being able to sit up in bed and was up to take a spong bath/clean up this evening. He remains in the ICU on a current airway watch with continuation of IV Clinda and Decadron and this morning per d/ w the hospitalist, IV Rocephin was added. He still reports difficulty swallowing and neck pain R>L. He denies F/C/or SOB. He o/w continues to c/o right nipple pain/fullness and abdominal pain. Reason For Visit: RETROPHARYNGEAL ABSCESS,DIABETES MELLITUS Evening rounds Physical Exam Vital Signs: Temp Pulse Resp BP Pulse Ox 98.5 F 104 H 17 117/81 98 12/15/17 21:42 12/15/17 19:00 12/15/17 18:00 12/15/17 18:00 12/15/17 18:00 Intake & Output 12/14/17 12/15/17 12/16/17 06:59 06:59 06:59 Intake Total 1895 1136 Output Total 1525 800 Balance 370 336 Weight 64.6 kg General appearance: PRESENT: no acute distress, other - The pt. is able to sit up in bed and is freely conversing without difficulty. Head exam: PRESENT: atraumatic, normocephalic Neck exam: PRESENT: tenderness - Mild neck fullness R>L and TTP R>L Neurological exam: PRESENT: alert, oriented to person, oriented to place, oriented to time, oriented to situation, CN II-XII grossly intact Results Laboratory Results: 12/15/17 06:15 12/15/17 21:56 12/15/17 12/15/17 12/15/17 00:14 06:15 06:15 WBC 16.6 H RBC 3.81 L Hgb 11.3 L Hct 33.5 L MCV 88 MCH 29.6 MCHC 33.5 RDW 13.6 Plt Count 250 Seg Neutrophils % Not Reportable Lymphocytes % Not Reportable Monocytes % Not Reportable Eosinophils % Not Reportable Basophils % Not Reportable Absolute Neutrophils Not Reportable Absolute Lymphocytes Not Reportable Absolute Monocytes Not Reportable Absolute Eosinophils Not Reportable Absolute Basophils Not Reportable Sodium 145.0 147.9 H Potassium 4.2 4.4 Chloride 111 H 110 H Carbon Dioxide 22 21 L Anion Gap 12 17 BUN 25 H 27 H Creatinine 1.19 1.18 Est GFR ( Amer) > 60 > 60 Est GFR (Non-Af Amer) > 60 > 60 Glucose 247 H 385 H Calcium 9.1 9.2 Phosphorus 12/15/17 12/15/17 06:15 21:56 WBC RBC Hgb Hct MCV MCH MCHC RDW Plt Count Seg Neutrophils % Lymphocytes % Monocytes % Eosinophils % Basophils % Absolute Neutrophils Absolute Lymphocytes Absolute Monocytes Absolute Eosinophils Absolute Basophils Sodium 149.7 H Potassium 4.4 Chloride 112 H Carbon Dioxide 27 Anion Gap 11 BUN 28 H Creatinine 1.12 Est GFR ( Amer) > 60 Est GFR (Non-Af Amer) > 60 Glucose 117 H Calcium 9.4 Phosphorus 4.1 Impressions: Chest X-Ray 12/14/17 00:00 IMPRESSION: NO ACUTE RADIOGRAPHIC FINDING IN THE CHEST. KUB X-Ray 12/14/17 00:00 IMPRESSION: Distended urinary bladder. Cannot exclude a pelvic mass. Assessment & Plan - Diagnosis (1) Neck infection Is this a current diagnosis for this admission?: Yes - Time Time Spent with patient: Less than 15 minutes Medications reviewed and adjusted accordingly: Yes Anticipated discharge: Home Within: within 48 hours - Plan Summary Plan Summary: Rec and plan as d/w the pt., ICU nursing and the hospitalist for repeat NPL exam in the a.m. O/w a continuation of current care plan.
[2017-12-16] MEDS: INSULIN LISPRO 100 UNIT/ML 3 ML VIAL SUBCUT SCH ×4 (00:42→18:08)
[2017-12-16] MEDS: PROMETHAZINE HCL INJ 25 MG/1 ML VIAL IV PRN ×2 (03:42→22:39)
[2017-12-16] MEDS: HYDROMORPHONE HCL INJ/PF 2 MG/ML AMPULE IV PRN ×4 (03:44→21:20)
[2017-12-16] MEDS: POTASSI CL 20 MEQ/1/2NS 1L 20 MEQ/1,000 ML RTUINJ IV PRN (03:49)
[2017-12-16 04:49] LABS: ANION GAP 12 (5-19); BLOOD UREA NITROGEN 32 mg/dL (7-20); CALCIUM 9.4 mg/dL (8.4-10.2); CARBON DIOXIDE 26 mmol/L (22-30); CHLORIDE 111 mmol/L (98-107); GLUCOSE 184 mg/dL (75-110); POTASSIUM 4.9 mmol/L (3.6-5.0); SODIUM 149.4 mmol/L (137-145)
[2017-12-16] MEDS: CLINDAMYCIN 900 MG/D5W RTU 50 ML IV SCH ×3 (05:47→21:20)
[2017-12-16] MEDS: DEXAMETHASONE SOD PHOSPHATE INJ 4 MG/1 ML VIAL IV SCH ×3 (05:48→21:19)
[2017-12-16 07:07] LABS: HEMATOCRIT 35.8 % (37.9-51.0); HEMOGLOBIN 11.8 g/dL (13.5-17.0); MEAN CORPUSCULAR HEMOGLOBIN 29.3 pg (27.0-33.4); MEAN CORPUSCULAR VOLUME 89 fl (80-97); PLATELET COUNT 255 10^3/uL (150-450); RED BLOOD COUNT 4.03 10^6/uL (4.35-5.55); RED CELL DISTRIBUTION WIDTH 14.1 % (11.5-14.0); WHITE BLOOD COUNT 18.5 10^3/uL (4.0-10.5)
[2017-12-16 07:09] LABS: ABSOLUTE LYMPHOCYTES# (MANUAL) 0.2 10^3/uL (0.5-4.7); ABSOLUTE MONOCYTES # (MANUAL) 0.6 10^3/uL (0.1-1.4); ABSOLUTE NEUTROPHILS# (MANUAL) 17.8 10^3/uL (1.7-8.2); BAND NEUTROPHILS % (MANUAL) 4 % (3-5); BASOPHILS % (MANUAL) 0 % (0-2); EOSINOPHILS % (MANUAL) 0 % (0-6); LYMPHOCYTES % (MANUAL) 1 % (13-45); MONOCYTES % (MANUAL) 3 % (3-13); SEGMENTED NEUTROPHILS % (MAN) 92 % (42-78); TOTAL CELLS COUNTED 100
[2017-12-16 07:10] LABS: PLATELET COMMENT ADEQUATE; POLYCHROMASIA SLIGHT; TOXIC GRANULATION SLIGHT; TOXIC VACUOLATION PRESENT
[2017-12-16] MEDS: CEFTRIAXONE 2 GM/D5W RTU 2 GM/50 ML RTUPB IV SCH (12:04)
[2017-12-16] MEDS: FAMOTIDINE INJ/PF 20 MG/2 ML SDV IV SCH ×2 (12:05→21:19)
--- NOTE | 2017-12-16 13:29 | CONSULTATION REPORT E ---
Consultation Report NAME: JONATHAN BARRERA : 1990 AGE: 27Y DATE: 608 A TO: KENDELL MARIE D.O. FROM: CALIXTO BAILEY M.D. Requesting Physician ER OTOLARYNGOLOGY CONSULTATION Patient was seen in the [facility] today, December 14, 2017. CHIEF COMPLAINT: Worsening sore throat symptoms. HISTORY OF PRESENT ILLNESS: This is a 27-year-old -[place] male who presented to the [facility] with complaint of worsening sore throat pain during the past week. The patient had been seen several days prior and treated for a tonsillitis type episode with Zithromax as he has a PENICILLIN allergy. The patient returned to the ER today with complaint of worsening sore throat pain and neck pain. The patient describes fevers at times. The patient denies difficulty breathing, nausea, or vomiting. The patient denies history of acute recurrent tonsillitis episodes or chronic tonsillitis. He denies prior history of a peritonsillar abscess. The patient underwent a CT neck with contrast imaging study with impression for diffuse prominence of the tonsillar tissues with inferior extension into the retropharyngeal soft tissues. The appearance is consistent with an infectious process with heterogenous dense findings in the retropharyngeal soft tissues to the right midline which are suspicious for a retropharyngeal abscess. These radiology findings were discussed with Radiology and there was more of an impression favoring a phlegmon type process. PAST MEDICAL HISTORY: Diabetes (IDDM) MEDICATIONS: CHICO Insulin Occ. Motrin and Tylenol SOCIAL HISTORY: Unknown smoking status and the patient denies drug use. FAMILY HISTORY: Reviewed and not clinically pertinent. PAST SURGICAL HISTORY: None. REVIEW OF SYSTEMS: Review of systems as in the History of Present Illness, otherwise unremarkable. PHYSICAL EXAMINATION: VITAL SIGNS: 98.4, pulse 105, respirations 20, blood pressure 118/82, pulse ox 98% on room air. GENERAL: Well developed in no apparent distress. HEAD: Normocephalic, atraumatic. EYES: Extraocular muscles intact and conjunctiva unremarkable. EARS: External auditory canals unremarkable and the tympanic membranes were intact with no middle ear effusions present. NOSE: Nasal septal deviation and inferior turbinate hypertrophy noted. ORAL CAVITY/OROPHARYNX: Patient is with no trismus and full range of motion. Moist mucous membranes are noted. Tonsils are greater than 2+ and fairly symmetric bilateral. There is no erythema or exudates noted. Soft palate is redundant and the uvula is unremarkable and midline. NECK: With tenderness to palpation on the right more than the left and there is scattered, shoddy lymph nodes noted. No TMJ tenderness noted. The patient is with nearly full neck range of motion to the left and right but he moves his head slowly and deliberately and complains of neck pain more to the right than to the left. The patient stated that moving his chin to his chest was too uncomfortable. NEUROLOGIC: Cranial nerves II-XII were grossly intact. He is otherwise alert and in no apparent distress. SKIN: Unremarkable in appearance. PROCEDURE: The patient also underwent a flexible fiberoptic endoscopic evaluation. The procedure and preparation with nasal spray consisting of Afrin and lidocaine was discussed with the patient and he verbally consented to undergo the nasal spray and endoscopic evaluation. The flexible fiberoptic endoscopic evaluation was performed with no sign of nasal polyps noted, INFORMATICA ARCHITECT/Nereida are clear, OP/HP were widely patent except for fullness along the right oropharyngeal and hypopharyngeal aspect with the appearance of Janessa's edema in the area of the hypopharynx/AEF (mild). There were no findings that were concerning for a retropharyngeal process/ abscess, but rather there were findings more concerning for a parapharyngeal process. The base of tongue was with mild fullness, the epiglottis was with crisp, distinct margins; there was no erythema or exudate noted, and the supraglottis was essentially uninvolved except for mild Janessa's type edema of the right AEF distribution. The TVC were otherwise symmetric and mobile. RADIOLOGY: The patient underwent a CT neck with contrast imaging study with impression for diffuse prominence of the tonsillar tissues with inferior extension into the retropharyngeal soft tissues. The appearance is consistent with an infectious process with heterogenous dense findings in the retropharyngeal soft tissues to the right midline which are suspicious for a retropharyngeal abscess. These radiology findings were discussed with Radiology and there was more of an impression favoring a phlegmon type process. ASSESSMENT AND PLAN: Patient is with history and findings concerning for more of a right parapharyngeal space/deep neck inflammatory process with phlegmon changes noted, but no discreet abscess identified at present. The case was discussed with the ER and hospitalist staff with recommendation and plan for hospital admission to the ICU for airway watch with continuation of IV antibiotics and steroids. The patient will be admitted by the hospitalist service with Otolaryngology following as a consulting service. All staff members were in agreement and the patient was admitted to the ICU. DICTATING PHYSICIAN: KENDELL MARIE D.O. 1955M 1 PHY#: [id number] ID: [id number] JOB#: [id number] ACCT: [id number] cc:KENDELL MARIE D.O. > MTDD
[2017-12-16] MEDS ORDERED: [UNRECOGNIZED DRUG - OTHER] IV PRN ×3 (13:59)
[2017-12-16] MEDS ORDERED: WATER FOR INJECTION STERILE IV PRN ×3 (13:59)
[2017-12-16] MEDS ORDERED: SODIUM CHLORIDE IV PRN ×3 (13:59)
--- NOTE | 2017-12-16 14:07 | PDOC PROGRESS REPORT ---
Subjective Progress Note for:: 12/16/17 Subjective:: Patient admitted with retropharyngeal phlegmon and difficulty breathing and swallowing. He says he feels little better. Is scheduled for CT scan of the neck for evaluation today. He is still on the Decadron as well as clindamycin and ceftriaxone Reason For Visit: RETROPHARYNGEAL ABSCESS,DIABETES MELLITUS Physical Exam Vital Signs: Temp Pulse Resp BP Pulse Ox 98.0 F 101 H 21 H 133/95 H 100 12/16/17 12:00 12/16/17 12:00 12/16/17 12:44 12/16/17 12:44 12/16/17 12:44 Intake & Output 12/15/17 12/16/17 12/17/17 06:59 06:59 06:59 Intake Total 1895 2160 Output Total 1525 1100 Balance 370 1060 Weight 64.6 kg 63.4 kg General appearance: PRESENT: no acute distress, thin Head exam: PRESENT: atraumatic, normocephalic Eye exam: PRESENT: conjunctiva pink, EOMI, PERRLA. ABSENT: scleral icterus Ear exam: PRESENT: normal external ear exam Mouth exam: PRESENT: moist, tongue midline Neck exam: PRESENT: JVD, tenderness - R neck, other - no stridor. ABSENT: carotid bruit, full ROM, lymphadenopathy, meningismus, tracheal deviation Respiratory exam: PRESENT: clear to auscultation morena, unlabored. ABSENT: rales , rhonchi, stridor, wheezes Cardiovascular exam: PRESENT: RRR. ABSENT: diastolic murmur, rubs, systolic murmur Pulses: PRESENT: normal dorsalis pedis pul Vascular exam: PRESENT: normal capillary refill GI/Abdominal exam: PRESENT: normal bowel sounds, soft. ABSENT: distended, guarding, mass, organolmegaly, rebound, tenderness Rectal exam: PRESENT: deferred Extremities exam: PRESENT: full ROM. ABSENT: calf tenderness, clubbing, pedal edema Neurological exam: PRESENT: alert, awake, oriented to person, oriented to place , oriented to time, oriented to situation, CN II-XII grossly intact. ABSENT: motor sensory deficit Psychiatric exam: PRESENT: appropriate affect, normal mood. ABSENT: homicidal ideation, suicidal ideation Skin exam: PRESENT: dry, intact, warm. ABSENT: cyanosis, rash Results Laboratory Results: 12/16/17 04:00 12/16/17 04:00 12/15/17 12/16/17 12/16/17 21:56 04:00 04:00 WBC 18.5 H RBC 4.03 L Hgb 11.8 L Hct 35.8 L MCV 89 MCH 29.3 MCHC 33.0 RDW 14.1 H Plt Count 255 Seg Neutrophils % Not Reportable Lymphocytes % Not Reportable Monocytes % Not Reportable Eosinophils % Not Reportable Basophils % Not Reportable Absolute Neutrophils Not Reportable Absolute Lymphocytes Not Reportable Absolute Monocytes Not Reportable Absolute Eosinophils Not Reportable Absolute Basophils Not Reportable Sodium 149.7 H 149.4 H Potassium 4.4 4.9 Chloride 112 H 111 H Carbon Dioxide 27 26 Anion Gap 11 12 BUN 28 H 32 H Creatinine 1.12 1.16 Est GFR ( Amer) > 60 > 60 Est GFR (Non-Af Amer) > 60 > 60 Glucose 117 H 184 H Calcium 9.4 9.4 Magnesium 2.3 Impressions: Chest X-Ray 12/14/17 00:00 IMPRESSION: NO ACUTE RADIOGRAPHIC FINDING IN THE CHEST. KUB X-Ray 12/14/17 00:00 IMPRESSION: Distended urinary bladder. Cannot exclude a pelvic mass. Soft Tissue Neck CT 12/15/17 00:00 IMPRESSION: Right peritonsillar abscess with involvement in the right parapharyngeal space and in the retropharyngeal space. Assessment & Plan - Diagnosis (1) Retropharyngeal abscess Is this a current diagnosis for this admission?: Yes Plan: We will continue current antibiotics and follow up on CT scan. Appreciate ENT input (2) Tonsillitis Is this a current diagnosis for this admission?: Yes (3) Diabetes 1.5, managed as type 1 Is this a current diagnosis for this admission?: Yes Plan: We will continue to adjust insulin for optimal blood pressure control. (4) Acute hypernatremia Is this a current diagnosis for this admission?: Yes Plan: Likely iatrogenic. Will continue with hypotonic saline and follow-up in a.m.
[2017-12-16] MEDS ORDERED: 1/2 NORMAL SALINE 1,000 ML IV PRN (14:47)
--- NOTE | 2017-12-16 16:53 | PDOC TRANSFER SUMMARY ---
General Admission Date/PCP: 12/14/17 10:42 - Transfer Diagnosis (1) Retropharyngeal abscess Is this a current diagnosis for this admission?: Yes (2) Tonsillitis Is this a current diagnosis for this admission?: Yes (3) Diabetes 1.5, managed as type 1 Is this a current diagnosis for this admission?: Yes (4) Acute hypernatremia Is this a current diagnosis for this admission?: Yes - Transfer Medications Home Medications: Azithromycin [Zithromax 250 mg Tablet] 250 mg PO DAILY 12/14/17 Ibuprofen [Motrin 600 mg Tablet] 600 mg PO Q8HP PRN 12/14/17 Insulin Aspart [Novolog Insulin (Aspart) 100 unit/mL] 0 units SQ .PERSLIDINGSCALE 12/14/17 Insulin Glargine,Hum.rec.anlog [Lantus Solostar] 20 units SQ QHS 12/14/17 Transfer Medications: Current Medications Acetaminophen (Tylenol 325 Mg Tablet) 650 mg PO Q4HP PRN PRN Reason: FOR PAIN Stop: 01/13/18 11:28 Albuterol/Ipratropium (Duoneb 3 Ml Ampul) 3 ml NEB RTQ6HP PRN PRN Reason: SHORTNESS OF BREATH Stop: 01/13/18 11:28 Last Admin: 12/15/17 00:29 Dose: 3 ml Dexamethasone Sodium Phosphate (Decadron Inj 4 Mg/Ml Vial) 10 mg IV Q8 [facility] Stop: 01/13/18 13:59 Last Admin: 12/16/17 13:48 Dose: 10 mg Dextrose (Dextrose Inj 50% Syringe (25 Gm/50 Ml)) 12.5 gm IV PRN PRN; Protocol PRN Reason: FOR BG 50-69 IN ALERT PATIENT Stop: 01/13/18 11:28 Dextrose (Dextrose Inj 50% Syringe (25 Gm/50 Ml)) 25 gm IV PRN PRN; Protocol PRN Reason: PER PROTOCOL Stop: 01/13/18 11:28 Dextrose (Dextrose Inj 50% Syringe (25 Gm/50 Ml)) 12.5 gm IV PRN PRN; Protocol PRN Reason: FOR BG 50-69 IN ALERT PATIENT Stop: 01/13/18 11:28 Dextrose (Dextrose Inj 50% Syringe (25 Gm/50 Ml)) 25 gm IV PRN PRN; Protocol PRN Reason: See Label Comments Stop: 01/13/18 11:28 Famotidine (Pepcid Inj/Pf 20 Mg/2 Ml Sdv) 20 mg IV Q12 [facility] Stop: 01/13/18 21:59 Last Admin: 12/16/17 12:05 Dose: 20 mg Glucagon (Glucagen Inj 1 Mg Vial) 1 mg IM PRN PRN; Protocol PRN Reason: Evaluate for BG < 70 Stop: 01/13/18 11:28 Glucose (Glutose 40% Gel 15 Gm Tube) 15 gm PO PRN PRN; Protocol PRN Reason: FOR BG 50-69 IN ALERT PATIENT Stop: 01/13/18 11:28 Glucose (Glutose 40% Gel 15 Gm Tube) 30 gm PO PRN PRN; Protocol PRN Reason: FOR BG < 50 IN ALERT PATIENT Stop: 01/13/18 11:28 Glucose (Glutose 40% Gel 15 Gm Tube) 15 gm PO PRN PRN; Protocol PRN Reason: For BG 50-69 in Alert Patient Stop: 01/13/18 11:28 Glucose (Glutose 40% Gel 15 Gm Tube) 30 gm PO PRN PRN; Protocol PRN Reason: FOR BG < 50 IN ALERT PATIENT Stop: 01/13/18 11:28 Hydromorphone HCl (Dilaudid Inj/Pf 2 Mg/Ml Ampule) 1 mg IV Q3HP PRN PRN Reason: FOR PAIN SCALE 2-4 Stop: 12/22/17 09:29 Last Admin: 12/16/17 07:50 Dose: 1 mg Clindamycin Phosphate/Dextrose (Cleocin Rtu 900 Mg/D5w 50 Ml Premix) 50 mls @ 50 mls/hr IV Q8 [facility] Stop: 12/21/17 13:59 Last Admin: 12/16/17 13:48 Dose: 50 ml Ceftriaxone Sodium/Dextrose (Rocephin Rtu 2 Gm/D5w 50 Ml Premix Bag) 2 gm in 50 mls @ 100 mls/hr IV DAILY [facility] Stop: 12/22/17 09:59 Last Admin: 12/16/17 12:04 Dose: 50 ml Sodium Chloride (Nacl 0.45% 1000 Ml Iv Soln) 1,000 mls @ 100 mls/hr IV CONTINUOUS PRN PRN Reason: THIS MED IS NOT "PRN" Stop: 01/15/18 14:46 Insulin Glargine (Lantus Insulin Inj 300 Unit/3 Ml Pen) 30 unit SUBCUT QHS [facility] Stop: 01/14/18 21:59 Last Admin: 12/15/17 22:36 Dose: 30 unit Insulin Human Lispro (Humalog Insulin 100 Unit/1 Ml 3 Ml Vial) 10 unit SUBCUT Q6 [facility] Stop: 01/13/18 17:59 Last Admin: 12/16/17 12:09 Dose: Not Given Insulin Human Regular (Humulin R (Pyxis) Insulin 100 Unit/Ml 3ml) 0 - 12 unit SUBCUT Q6HP PRN; Protocol PRN Reason: PER PROTOCOL Stop: 01/13/18 11:28 Last Admin: 12/15/17 12:57 Dose: 4 unit Lidocaine HCl (Xylocaine 4% Topical Soln 50 Ml) 1 applic TP .PROCEDURE PRN Stop: 12/16/17 17:59 Ondansetron HCl (Zofran Inj/Pf 4 Mg/2 Ml Sdv) 4 mg IV Q8HP PRN PRN Reason: NAUSEA/VOMITING Stop: 01/13/18 19:50 Last Admin: 12/15/17 20:54 Dose: 4 mg Oxymetazoline HCl (Afrin 0.05% Nasal [place] 15 Ml Bottle) 1 spray NASL .PROCEDURE PRN Stop: 12/16/17 17:59 Promethazine HCl (Phenergan Inj 25 Mg/1 Ml Vial) 6.25 mg IV Q4HP PRN PRN Reason: UNRESOLVED NAUSEA/VOMITING Stop: 01/14/18 00:48 Last Admin: 12/16/17 03:42 Dose: 6.25 mg Sodium Chloride (Saline Flush 2.5 Ml Monoject Prefil Syrin) 2.5 ml IV Q8 [facility] Stop: 01/13/18 13:59 Last Admin: 12/16/17 13:49 Dose: 2.5 ml - Allergies Allergies/Adverse Reactions: Penicillins Allergy (Verified 12/16/17 16:36) - Diet/Activity Discharge Diet: Other (Comments) - NPO Discharge Activity: Activity As Tolerated Hospital Course Hospital Course: This 27-year-old gentleman was admitted on December 14 with complaints of sore throat and difficulty swallowing. He had actually been seen in the emergency room on the with the same complaints and he was given azithromycin for possible tonsillitis is penicillin allergic. Patient returned 2 days later with no relief.. CT scan done at this time showed diffuse prominence of the tonsillar tissues with inferior extension into the retropharyngeal soft tissues suspicious for a retropharyngeal abscess. Patient was seen by ENT who felt that this was more of a phlegmon and not an abscess. He had a flexible fiberoptic endoscopic evaluation done which basically showed widely patent oropharyngeal and hypopharyngeal area with some edema. There were apparently no findings concerning for retropharyngeal abscess. Patient was admitted to the intensive care unit where he was started on empiric broad-spectrum antibiotics, intravenous clindamycin and ceftriaxone was subsequently added and was also treated with intravenous dexamethasone. There was minimal improvement. There continues to be patent airway clinically however due to patient's persistent complaint a repeat CT of the neck was done on 12/15 which now shows right peritonsillar abscess with involvement in the right parapharyngeal space and in the retropharyngeal space. At this point patient will need further surgical intervention and after discussion with Dr. Cote who had been consulted on this patient he advises transfer to a tertiary center for further evaluation and management. Patient is also diabetic and initially he was mildly ketotic with trace ketones and CO2 of 21. He has been receiving intravenous fluid as well as sliding scale insulin as his oral intake has been minimal as he remains n.p.o. His blood sugars despite the dexamethasone of currently being less than 200. He is currently hyponatremic with a sodium 149 and he has been receiving hypotonic IV fluid infusion. Blood cultures and throat cultures have been negative and his white count was noted to be increased from 11.5 on admission to 18.5 today however patient has also been on high-dose steroids. He has otherwise remained hemodynamically stable although he had been mildly tachypneic. Physical Exam Vital Signs: Temp Pulse Resp BP Pulse Ox 98.6 F 109 H 17 147/98 H 100 12/16/17 16:00 12/16/17 16:00 12/16/17 16:00 12/16/17 16:00 12/16/17 16:00 Intake & Output 12/15/17 12/16/17 12/17/17 06:59 06:59 06:59 Intake Total 1895 2160 Output Total 1525 1100 Balance 370 1060 Weight 64.6 kg 63.4 kg General appearance: PRESENT: no acute distress, thin Head exam: PRESENT: atraumatic Head Image: 1 - tenderness especially R cervical area Eye exam: PRESENT: conjunctiva pink, EOMI, PERRLA. ABSENT: scleral icterus Ear exam: PRESENT: normal external ear exam Mouth exam: PRESENT: other - limited opening Throat exam: PRESENT: other - tenderness R neck, swelling R tonsillar area Neck exam: PRESENT: tenderness - Right side, other - Limited movement of neck Neurological exam: PRESENT: alert, awake, oriented to person, oriented to place , oriented to time, oriented to situation, CN II-XII grossly intact. ABSENT: motor sensory deficit Psychiatric exam: PRESENT: appropriate affect Results Laboratory Results: 12/16/17 04:00 12/16/17 04:00 12/15/17 12/16/17 12/16/17 21:56 04:00 04:00 WBC 18.5 H RBC 4.03 L Hgb 11.8 L Hct 35.8 L MCV 89 MCH 29.3 MCHC 33.0 RDW 14.1 H Plt Count 255 Seg Neutrophils % Not Reportable Lymphocytes % Not Reportable Monocytes % Not Reportable Eosinophils % Not Reportable Basophils % Not Reportable Absolute Neutrophils Not Reportable Absolute Lymphocytes Not Reportable Absolute Monocytes Not Reportable Absolute Eosinophils Not Reportable Absolute Basophils Not Reportable Sodium 149.7 H 149.4 H Potassium 4.4 4.9 Chloride 112 H 111 H Carbon Dioxide 27 26 Anion Gap 11 12 BUN 28 H 32 H Creatinine 1.12 1.16 Est GFR ( Amer) > 60 > 60 Est GFR (Non-Af Amer) > 60 > 60 Glucose 117 H 184 H Calcium 9.4 9.4 Magnesium 2.3 Impressions: Chest X-Ray 12/14/17 00:00 IMPRESSION: NO ACUTE RADIOGRAPHIC FINDING IN THE CHEST. KUB X-Ray 12/14/17 00:00 IMPRESSION: Distended urinary bladder. Cannot exclude a pelvic mass. Soft Tissue Neck CT 12/15/17 00:00 IMPRESSION: Right peritonsillar abscess with involvement in the right parapharyngeal space and in the retropharyngeal space. Plan Discharge Plan: Transfer to [facility], patient has been accepted for further management Time Spent: Greater than 30 Minutes
--- NOTE | 2017-12-16 17:26 | Progress Note ---
Provider Note Provider Note: ID Consult Note / Telephone Consultation Asked by Pharmacy to review patient's chart. Pt not seen and examined. Chart reviewed, including VS, imaging, labs, provider reports. Mr. Jiménez is a 27 yo man who was admitted on 12/14/17 with sore throat that did not improve with treatment with azithromycin. He has a penicillin allergy listed in his chart, reaction unspecified. He was appreciated to have right sided facial and neck swelling with tenderness to palpation, R posterior pharyngeal edema and erythema , inability to fully open his mouth, no tonsillar exudate visualized. CT soft tissue neck on 12/14 showed heterogenous density in the right sided retropharyngeal soft tissues suspicious for retropharyngeal abscess. Clindamycin and dexamethasone were started on 12/14. The patient has been seen by ENT. Per the provider's report from 12/15, at the recommendation of Infectious Disease, Rocephin was added to the patient's regimen as well. Impression/Recommendations Input was requested by Pharmacy regarding further streamlining of empiric antibiotics for retropharyngeal phlegmon or abscess secondary to pharyngitis/ tonsillitis. - In general, empiric antibiotic therapy generally is targeted against Strep species and Fusobacterium with either a beta lactam/beta lactamase inhibitor combination (such as Unasyn or Augmentin, but pt has penicillin allergy), Rocephin/Flagyl, or clindamycin. Pt had been on clindamycin, and then Rocephin was added to this. - Current regimen can be continued or consideration could be given to changing Rocephin/clindamycin to Rocephin/Flagyl. A potential advantage of changing from clindamycin to metronidazole would be in trying to reduce risk for C diff ( perhaps less likely in a young and otherwise healthy patient, but nonetheless clindamycin tends to carry a greater C diff risk than any other individual antibiotic). - Duration of therapy depends upon resolution of fever, leukocytosis, swelling and tenderness and should be guided by response; generally in the range of 2-3 weeks. Agustín Calvillo MD [facility] Infectious Diseases pager [phone], 8am-5 pm
[2017-12-16] MEDS: INSULIN GLARGINE,HUM.REC.ANLOG 300 UNIT/3 ML INSULN.PEN SUBCUT SCH (21:21)
[2017-12-17] MEDS: INSULIN LISPRO 100 UNIT/ML 3 ML VIAL SUBCUT SCH (00:02)
[2017-12-17 02:58] VITALS: BP 145/102
== END 2017-12-17 03:11 | disposition short-term general hospital (02) | DRG 153 ==
LOC: ER 04:57 → EH 10:42 → ICU 12:59
PROVIDERS: ADMIT Family Medicine; ATTEND Family Medicine
PROC: 3E0F73Z Introduction of Anti-inflammatory into Respiratory Tract, Via Natural or Artificial Opening (ICD-10-PCS; principal; 2017-12-14)
DX: J39.0 Retropharyngeal and parapharyngeal abscess (principal); E87.0 Hyperosmolality and hypernatremia; J03.90 Acute tonsillitis, unspecified; J34.2 Deviated nasal septum; D64.9 Anemia, unspecified; E09.65 Drug or chemical induced diabetes mellitus with hyperglycemia; T38.0X5A Adverse effect of glucocorticoids and synthetic analogues, initial encounter; Z79.4 Long term (current) use of insulin; Z79.899 Other long term (current) drug therapy; Z88.0 Allergy status to penicillin
CPT/HCPCS: 36415; 70491; 71045; 74018; 80048; 80053; 81001; 82962; 83605; 83690; 83735; 84100; 85025; 87040; 87070; 87880; 94640; 96361; 96374; 99291; J0696; J1100; J1170; J1815; J1885; J2405; J2550; J3480; J3490; J7030; J7120; J7620; S0028